=== PATIENT | female | born 1955 | race Caucasian/White ===

== ENCOUNTER 2023-01-30 08:59 | Outpatient (CLI) | payer MEDICARE, OTHER | END 2023-01-30 09:00 | disposition home or self-care (01) | LOC: CSHWCC 08:59 | PROVIDERS: ATTEND Nurse Practitioner Family | DX: R60.0 Localized edema (principal); I87.313 Chronic venous hypertension (idiopathic) with ulcer of bilateral lower extremity; L97.822 Non-pressure chronic ulcer of other part of left lower leg with fat layer exposed; L97.812 Non-pressure chronic ulcer of other part of right lower leg with fat layer exposed; T81.89XD Other complications of procedures, not elsewhere classified, subsequent encounter | CPT/HCPCS: 29581; 97139; 97597; G0463; 99203 ==

== ENCOUNTER 2023-02-05 13:06 | Outpatient (CLI) | payer MEDICARE, OTHER | END 2023-02-05 13:07 | disposition home or self-care (01) | LOC: CSHWCC 13:06 | PROVIDERS: ATTEND Nurse Practitioner Family | DX: E11.8 Type 2 diabetes mellitus with unspecified complications (principal) | CPT/HCPCS: 97139; G0463; 99212 ==